=== PATIENT | male | born 1950 | race Hispanic/Latino ===

== ENCOUNTER 2017-10-24 08:08 | Day surgery (SDC) | payer OTHER, MEDICARE ==
[2017-10-22 08:49] VITALS: BP 106/76
[2017-10-22 08:58] LABS: BASOPHILS % (AUTO) 0.7 % (0.0-5.0); HEMATOCRIT 44.9 % (42-54); LYMPHOCYTES % (AUTO) 25.8 % (21.0-51.0); MEAN CORPUSCULAR HEMOGLOBIN 31.4 pg (27.0-33.0); MEAN CORPUSCULAR HGB CONC 34.1 g/dL (32.0-36.0); MEAN CORPUSCULAR VOLUME 92.1 fL (79-99); MONOCYTES % (AUTO) 7.1 % (3.0-13.0); NEUTROPHILS % (AUTO) 62.4 % (40.0-77.0); PLATELET COUNT (AUTO) 308 K/uL (130-400); RED BLOOD CELL COUNT(AUTO) 4.88 MIL/uL (4.50-6.20); RED CELL DISTRIBUTION WIDTH 13.5 % (11.0-15.5)
[2017-10-22 08:59] LABS: APPEARANCE,URINE Clear (CLEAR); BILIRUBIN,URINE Negative (NEGATIVE); COLOR,URINE Yellow (YELLOW); GLUCOSE, URINE (UA) Negative (NEGATIVE); KETONES,URINE Negative (NEGATIVE); LEUKOCYTE ESTERASE ,URINE Negative (NEGATIVE); NITRATE,URINE Negative (NEGATIVE); OCCULT BLOOD,URINE Negative (NEGATIVE); PROTEIN,URINE Negative (NEGATIVE); UROBILINOGEN,URINE 0.2 mg/dL (0.2-1.0)
[2017-10-22 09:10] LABS: CREATININE 0.9 mg/dL (0.5-1.5); POTASSIUM 4.1 mmol/L (3.5-5.1)
[2017-10-22 09:13] LABS: PROTHROMBIN TIME 10.5 SEC (9.6-11.6)
[~2017-10-24] VITALS: Ht 180.3 cm; Wt 120.7 kg
[2017-10-24] VITALS (9 sets, daily range): BP systolic 92–131; BP diastolic 65–78
[~2017-10-24 08:08] MED LIST: ASPI-555 PO; ATOR20TA65 PO; CARV3.12 PO; FLUO40CA49 PO; FURO-152 PO; GABA-318 PO; GLIP10TA9 PO; METF10004 PO; METO-391 PO; RIVA20TA PO; SITA100T12 PO; TAMS-1 PO
[2017-10-24] MEDS ORDERED: SODIUM CHLORIDE 0.9% 1000ML 1,000 ML IV ONE (08:10)
[2017-10-24] MEDS ORDERED: LIDOCAINE HCL 2% 20ML ONE (10:19)
[2017-10-24] MEDS ORDERED: IOPAMIDOL-370 100 ML VIAL IV ONE (10:19)
[2017-10-24] MEDS ORDERED: ISOVUE-370 50ML VIAL IV ONE (10:19)
[2017-10-24] MEDS ORDERED: NITROGLYCERIN 5 MG/ML 10 ML VIAL IV ONE (10:19)
[2017-10-24] MEDS ORDERED: DEXTROSE 50%-WATER 50 ML DISP.SYRIN IV PRN (10:45)
[2017-10-24] MEDS ORDERED: METOPROLOL TARTRATE 1 MG/ML 5ML VIAL IV PRN (10:45)
[2017-10-24] MEDS ORDERED: HYDRALAZINE HCL 20 MG/ML VIAL IV PRN (10:45)
[2017-10-24] MEDS ORDERED: GLUCAGON 1MG KIT 1 MG ML IM PRN (10:45)
[2017-10-24] MEDS ORDERED: INSULIN HUMULIN R 100 UNIT/ML 3ML SQ SCH (11:30)
[2017-10-24] MEDS ORDERED: ALBUTEROL SULFATE 0.083% 2.5 MG/3 ML INH IH ONE ×2 (14:20→17:00)
== END 2017-10-24 16:09 | disposition home or self-care (01) ==
LOC: DAH 08:08 → SUH 08:08
PROVIDERS: ATTEND Internal Medicine Cardiovascular Disease
DX: I25.10 Atherosclerotic heart disease of native coronary artery without angina pectoris (principal); R94.39 Abnormal result of other cardiovascular function study; E11.9 Type 2 diabetes mellitus without complications; E78.5 Hyperlipidemia, unspecified; I11.0 Hypertensive heart disease with heart failure; I50.9 Heart failure, unspecified; E78.00 Pure hypercholesterolemia, unspecified; Z79.84 Long term (current) use of oral hypoglycemic drugs; Z79.899 Other long term (current) drug therapy; I25.5 Ischemic cardiomyopathy; Z79.82 Long term (current) use of aspirin
CPT/HCPCS: 36415; 71045; 80048; 81003; 82948 ×2; 85025; 85610; 85730; 93005; 93458; 94640; A4606; C1894 ×2; J1644; J3490 ×2; J7030; Q9967 ×2

== ENCOUNTER 2020-11-23 17:57 | Inpatient (IN) | payer OTHER, MEDICARE ==
[~2020-11-23] VITALS: Ht 180.3 cm; Wt 113.1 kg
[~2020-11-23 17:57] MED LIST changes: -ASPI-555 PO; +ASPI-556 PO; -CARV3.12 PO; -GABA-318 PO; +GABA600T10 PO; +METF-446 PO; -METF10004 PO
[2020-11-23 19:26] LABS: INR 1.02 (0.85-1.15); PROTHROMBIN TIME 11.1 SEC (9.6-11.6)
[2020-11-23 19:28] LABS: PARTIAL THROMBOPLASTIN TIME 26.5 SEC (26.3-35.5)
[2020-11-23 19:29] LABS: BASOPHILS % (AUTO) 0.4 % (0.0-5.0); EOSINOPHILS % (AUTO) 0.9 % (0.0-8.0); HEMATOCRIT 40.7 % (42-54); LYMPHOCYTES % (AUTO) 21.8 % (21.0-51.0); MEAN CORPUSCULAR HEMOGLOBIN 30.3 pg (27.0-33.0); MEAN CORPUSCULAR HGB CONC 33.4 g/dL (32.0-36.0); MEAN CORPUSCULAR VOLUME 90.6 fL (79-99); MONOCYTES % (AUTO) 6.8 % (3.0-13.0); NEUTROPHILS % (AUTO) 69.7 % (40.0-77.0); PLATELET COUNT (AUTO) 268 K/uL (130-400); RED BLOOD CELL COUNT(AUTO) 4.49 MIL/uL (4.50-6.20); RED CELL DISTRIBUTION WIDTH 13.5 % (11.0-15.5); WHITE BLOOD COUNT (AUTO) 12.9 K/uL (4.8-10.8)
[2020-11-23 19:50] LABS: ALBUMIN 3.5 g/dL (3.5-5.0); BILIRUBIN,TOTAL 0.3 mg/dL (0.2-1.0); CRP QUANTITATIVE 3.1 mg/L (0.00-9.0)
[2020-11-23 19:51] LABS: B-TYPE NATRIURETIC PEPTIDE 161 pg/mL (0-100)
[2020-11-23 22:36] LABS: APPEARANCE,URINE Clear (CLEAR); BILIRUBIN,URINE Negative (NEGATIVE); COLOR,URINE Yellow (YELLOW); GLUCOSE, URINE (UA) Negative (NEGATIVE); KETONES,URINE Negative (NEGATIVE); LEUKOCYTE ESTERASE ,URINE Negative (NEGATIVE); NITRATE,URINE Negative (NEGATIVE); OCCULT BLOOD,URINE Negative (NEGATIVE); PH,URINE 5.5 (5.0-8.0); PROTEIN,URINE Negative (NEGATIVE)
[2020-11-23] MEDS ORDERED: LACTULOSE 20 GM/30 ML UDCUP PO PRN (22:45)
[2020-11-23] MEDS ORDERED: GUAIFENESIN-DM 200/20 MG 10 ML PO PRN (22:45)
[2020-11-23] MEDS: CEFTRIAXONE SODIUM 1 GM IV SCH (22:45)
[2020-11-23] MEDS ORDERED: ACETAMINOPHEN 325 MG TAB PO PRN (22:45)
[2020-11-23] MEDS ORDERED: NITROGLYCERIN 0.4 MG SL TAB SL PRN (22:45)
[2020-11-23] MEDS ORDERED: DIPHENHYDRAMINE HCL 25 MG CAPSULE PO PRN (22:45)
[2020-11-23] MEDS: LACTATED RINGERS 1000ML 1,000 ML IV SCH (22:45)
[2020-11-23] MEDS ORDERED: MAG HYDROX/AL HYDROX/SIMETH ES 30 ML SUSP UDCUP PO PRN (22:45)
[2020-11-23] MEDS ORDERED: ONDANSETRON HCL 4 MG/2 ML VIAL IV PRN (22:45)
[2020-11-23] MEDS ORDERED: DiphenhydrAMINE HCL 50 MG/ML VIAL IV PRN (22:45)
[2020-11-23] MEDS ORDERED: LACTATED RINGERS 1000ML 1,000 ML IV ONE (23:51)
[2020-11-23] MEDS ORDERED: CARVEDILOL 3.125 MG TABLET PO ONE (23:51)
[2020-11-23] MEDS ORDERED: CEFTRIAXONE SODIUM 1 GM ONE (23:51)
[2020-11-23] MEDS ORDERED: FAMOTIDINE/PF 20 MG/2 ML VIAL IV ONE (23:52)
[2020-11-24 01:25] VITALS: BP 123/90
[2020-11-24] MEDS ORDERED: POTA10TA11 PO (02:51)
[2020-11-24] MEDS ORDERED: PANT40TA54 PO (02:51)
[2020-11-24] MEDS ORDERED: CARV3.12 PO (02:54)
[2020-11-24] MEDS ORDERED: BUPR-49 PO (02:54)
[2020-11-24] MEDS ORDERED: DONE5TAB33 PO (02:57)
[2020-11-24] MEDS ORDERED: VARE1TAB22 PO (02:59)
[2020-11-24] MEDS ORDERED: ESCI20TA38 PO (02:59)
[2020-11-24 04:32] VITALS: BP 120/80
[2020-11-24 08:06] VITALS: BP 112/59
[2020-11-24] MEDS: LACTATED RINGERS 1000ML 1,000 ML IV SCH (08:45)
[2020-11-24] MEDS: CARVEDILOL 3.125 MG TABLET PO SCH ×2 (09:29→21:00)
[2020-11-24] MEDS: FAMOTIDINE/PF 20 MG/2 ML VIAL IV SCH ×2 (09:30→21:00)
[2020-11-24 11:41] VITALS: BP 111/79
[2020-11-24 16:00] VITALS: BP 126/78
[2020-11-24] MEDS: METFORMIN HCL 500 MG TABLET PO SCH (17:40)
[2020-11-24] MEDS: INSULIN HUMULIN R 100 UNIT/ML 3ML SQ SCH ×2 (17:42→21:00)
[2020-11-24] MEDS: NICOTINE 21 MG/ 24 HR PATCH TD SCH (18:39)
[2020-11-24] MEDS ORDERED: LORAZEPAM 2 MG/ML 1 ML VIAL IVP PRN (19:45)
[2020-11-24] MEDS ORDERED: LORAZEPAM 2 MG/ML 1 ML VIAL ONE (19:47)
[2020-11-24] MEDS: DONEPEZIL HCL 5 MG TAB PO SCH (21:00)
[2020-11-24] MEDS: GABAPENTIN 300 MG CAPSULE PO SCH (21:00)
[2020-11-24] MEDS: VARENICLINE TARTRATE PO SCH (21:00)
[2020-11-24] MEDS ORDERED: HALOPERIDOL LACTATE 5 MG/ML VIAL IM SCH (23:00)
[2020-11-24] MEDS ORDERED: HALOPERIDOL LACTATE 5 MG/ML VIAL ONE (23:14)
[2020-11-24] MEDS: CEFTRIAXONE SODIUM 1 GM IV SCH (23:17)
[2020-11-25] VITALS: BP 132/87
[2020-11-25 04:35] VITALS: BP 133/86
[2020-11-25 05:01] LABS: BASOPHILS % (AUTO) 0.3 % (0.0-5.0); EOSINOPHILS % (AUTO) 0.1 % (0.0-8.0); HEMATOCRIT 39.9 % (42-54); LYMPHOCYTES % (AUTO) 14.4 % (21.0-51.0); MEAN CORPUSCULAR HEMOGLOBIN 30.2 pg (27.0-33.0); MEAN CORPUSCULAR HGB CONC 33.6 g/dL (32.0-36.0); MEAN CORPUSCULAR VOLUME 89.9 fL (79-99); MONOCYTES % (AUTO) 7.2 % (3.0-13.0); NEUTROPHILS % (AUTO) 77.6 % (40.0-77.0); PLATELET COUNT (AUTO) 294 K/uL (130-400); RED BLOOD CELL COUNT(AUTO) 4.44 MIL/uL (4.50-6.20); RED CELL DISTRIBUTION WIDTH 13.3 % (11.0-15.5); WHITE BLOOD COUNT (AUTO) 17.2 K/uL (4.8-10.8)
[2020-11-25 05:08] LABS: POTASSIUM 3.4 mmol/L (3.5-5.1)
[2020-11-25] MEDS: INSULIN HUMULIN R 100 UNIT/ML 3ML SQ SCH ×4 (07:30→21:00)
[2020-11-25] MEDS: FAMOTIDINE/PF 20 MG/2 ML VIAL IV SCH ×2 (09:00→21:55)
[2020-11-25] MEDS: NICOTINE 21 MG/ 24 HR PATCH TD SCH (09:00)
[2020-11-25] MEDS: RIVAROXABAN 20 MG TABLET PO SCH (09:00)
[2020-11-25] MEDS: VARENICLINE TARTRATE PO SCH ×2 (09:00→21:00)
[2020-11-25] MEDS: LINAGLIPTIN 5 MG TABLET PO SCH (09:01)
[2020-11-25] MEDS: METFORMIN HCL 500 MG TABLET PO SCH ×2 (09:01→14:59)
[2020-11-25] MEDS: ATORVASTATIN CALCIUM 20 MG TABLET PO SCH (09:02)
[2020-11-25] MEDS: FUROSEMIDE 20 MG TABLET PO SCH (09:02)
[2020-11-25] MEDS: CARVEDILOL 3.125 MG TABLET PO SCH ×2 (09:02→21:56)
[2020-11-25] MEDS: CITALOPRAM 20 MG TABLET PO SCH (09:02)
[2020-11-25] MEDS: ACETAMINOPHEN 325 MG TAB PO PRN (09:02)
[2020-11-25] MEDS: BUPROPION HCL 150 MG TABLET.SA PO SCH (09:03)
[2020-11-25] MEDS ORDERED: CHLORDIAZEPOXIDE HCL 25 MG CAP PO PRN (10:30)
[2020-11-25] MEDS ORDERED: LORAZEPAM 2 MG/ML 1 ML VIAL IVP PRN (10:30)
[2020-11-25] MEDS ORDERED: PHARMACY COMMUNICATION MISC PRN (10:30)
[2020-11-25 10:41] LABS: MAGNESIUM 1.8 mg/dL (1.80-2.40); PHOSPHORUS 3.2 mg/dL (2.5-4.9)
[2020-11-25 12:02] VITALS: BP 114/89
[2020-11-25] MEDS ORDERED: LIDOCAINE HCL-MPF 1% 2ML VIAL IV PRN (14:15)
[2020-11-25] MEDS ORDERED: POTASSIUM CHLORIDE 20 MEQ ERTAB PO PRN (14:15)
[2020-11-25] MEDS ORDERED: POTASSIUM CHLORIDE 20MEQ/100ML 100 ML IV PRN (14:15)
[2020-11-25] MEDS: ALBUTEROL INHALER 90MCG/INH IH PRN (14:59)
[2020-11-25] MEDS: POTASSIUM CHLORIDE 10% ELIXIR 20 MEQ/15 ML UDCUP PO PRN ×2 (15:01→21:59)
[2020-11-25 16:19] VITALS: BP 145/82
[2020-11-25] MEDS ORDERED: IPRATROPIUM/ALBUTEROL SULFATE 3 ML SOLUTION IH SCH (18:00)
[2020-11-25] MEDS: GABAPENTIN 300 MG CAPSULE PO SCH (21:56)
[2020-11-25] MEDS: RISPERIDONE 0.5 MG TABLET PO SCH (21:56)
[2020-11-25] MEDS: DONEPEZIL HCL 5 MG TAB PO SCH (21:57)
[2020-11-25] MEDS: CEFTRIAXONE SODIUM 1 GM IV SCH (21:57)
[2020-11-26] MEDS ORDERED: MAGNESIUM 2GM PREMIX 50ML 50 ML IV PRN (01:15)
[2020-11-26 04:00] VITALS: BP 132/75
[2020-11-26] MEDS: ALBUTEROL INHALER 90MCG/INH IH PRN (04:21)
[2020-11-26 05:12] LABS: BASOPHILS % (AUTO) 0.5 % (0.0-5.0); EOSINOPHILS % (AUTO) 0.8 % (0.0-8.0); HEMATOCRIT 40.8 % (42-54); MEAN CORPUSCULAR HEMOGLOBIN 29.9 pg (27.0-33.0); MEAN CORPUSCULAR HGB CONC 32.8 g/dL (32.0-36.0); MEAN CORPUSCULAR VOLUME 91.1 fL (79-99); NEUTROPHILS % (AUTO) 72.5 % (40.0-77.0); PLATELET COUNT (AUTO) 302 K/uL (130-400); RED BLOOD CELL COUNT(AUTO) 4.48 MIL/uL (4.50-6.20); RED CELL DISTRIBUTION WIDTH 13.4 % (11.0-15.5); WHITE BLOOD COUNT (AUTO) 13.6 K/uL (4.8-10.8)
[2020-11-26] MEDS: INSULIN HUMULIN R 100 UNIT/ML 3ML SQ SCH ×4 (05:22→21:00)
[2020-11-26 05:33] LABS: CREATININE 0.9 mg/dL (0.5-1.5); MAGNESIUM 1.9 mg/dL (1.80-2.40); POTASSIUM 3.6 mmol/L (3.5-5.1)
[2020-11-26 08:00] VITALS: BP 119/93
[2020-11-26] MEDS: METFORMIN HCL 500 MG TABLET PO SCH ×2 (08:00→17:00)
[2020-11-26] MEDS: LINAGLIPTIN 5 MG TABLET PO SCH (09:00)
[2020-11-26] MEDS: VARENICLINE TARTRATE PO SCH ×2 (09:00→21:00)
[2020-11-26] MEDS: THIAMINE HCL 100 MG/ML 2ML VIAL IM SCH (10:53)
[2020-11-26] MEDS: FAMOTIDINE/PF 20 MG/2 ML VIAL IV SCH ×2 (10:53→22:01)
[2020-11-26] MEDS: RIVAROXABAN 20 MG TABLET PO SCH (10:53)
[2020-11-26] MEDS: CARVEDILOL 3.125 MG TABLET PO SCH ×2 (10:54→21:58)
[2020-11-26] MEDS: FUROSEMIDE 20 MG TABLET PO SCH (10:54)
[2020-11-26] MEDS: CITALOPRAM 20 MG TABLET PO SCH (10:54)
[2020-11-26] MEDS: MULTIVITAMIN TABLET PO SCH (10:54)
[2020-11-26] MEDS: FOLIC ACID 1 MG TABLET PO SCH (10:54)
[2020-11-26] MEDS: ATORVASTATIN CALCIUM 20 MG TABLET PO SCH (10:54)
[2020-11-26] MEDS: BUPROPION HCL 150 MG TABLET.SA PO SCH (10:54)
[2020-11-26] MEDS: NICOTINE 21 MG/ 24 HR PATCH TD SCH (10:55)
[2020-11-26] MEDS: RISPERIDONE 0.5 MG TABLET PO SCH ×3 (10:55→22:05)
[2020-11-26 12:00] VITALS: BP 128/73
[2020-11-26 16:00] VITALS: BP 124/97
[2020-11-26 21:22] VITALS: BP 122/64
[2020-11-26] MEDS: DONEPEZIL HCL 5 MG TAB PO SCH (21:59)
[2020-11-26] MEDS: GABAPENTIN 300 MG CAPSULE PO SCH (21:59)
[2020-11-26] MEDS: CEFTRIAXONE SODIUM 1 GM IV SCH (22:00)
[2020-11-27] VITALS (7 sets, daily range): BP systolic 101–170; BP diastolic 64–92
[2020-11-27 05:01] LABS: BASOPHILS % (AUTO) 0.5 % (0.0-5.0); HEMATOCRIT 44.3 % (42-54); LYMPHOCYTES % (AUTO) 16.6 % (21.0-51.0); MEAN CORPUSCULAR HEMOGLOBIN 29.7 pg (27.0-33.0); MEAN CORPUSCULAR HGB CONC 32.5 g/dL (32.0-36.0); MEAN CORPUSCULAR VOLUME 91.3 fL (79-99); MONOCYTES % (AUTO) 7.9 % (3.0-13.0); NEUTROPHILS % (AUTO) 73.7 % (40.0-77.0); PLATELET COUNT (AUTO) 303 K/uL (130-400); RED BLOOD CELL COUNT(AUTO) 4.85 MIL/uL (4.50-6.20); RED CELL DISTRIBUTION WIDTH 13.4 % (11.0-15.5); WHITE BLOOD COUNT (AUTO) 11.7 K/uL (4.8-10.8)
[2020-11-27 05:16] LABS: POTASSIUM 3.9 mmol/L (3.5-5.1)
[2020-11-27] MEDS: INSULIN HUMULIN R 100 UNIT/ML 3ML SQ SCH ×4 (06:27→20:16)
[2020-11-27] MEDS: METFORMIN HCL 500 MG TABLET PO SCH ×2 (07:39→16:29)
[2020-11-27] MEDS: LINAGLIPTIN 5 MG TABLET PO SCH (07:40)
[2020-11-27] MEDS: VARENICLINE TARTRATE PO SCH ×2 (07:40→20:16)
[2020-11-27] MEDS: THIAMINE HCL 100 MG/ML 2ML VIAL IM SCH (08:56)
[2020-11-27] MEDS: FOLIC ACID 1 MG TABLET PO SCH (08:56)
[2020-11-27] MEDS: BUPROPION HCL 150 MG TABLET.SA PO SCH (08:56)
[2020-11-27] MEDS: MULTIVITAMIN TABLET PO SCH (08:56)
[2020-11-27] MEDS: RIVAROXABAN 20 MG TABLET PO SCH (08:57)
[2020-11-27] MEDS: FUROSEMIDE 20 MG TABLET PO SCH (08:57)
[2020-11-27] MEDS: CARVEDILOL 3.125 MG TABLET PO SCH ×2 (08:57→20:15)
[2020-11-27] MEDS: NICOTINE 21 MG/ 24 HR PATCH TD SCH (08:57)
[2020-11-27] MEDS: FAMOTIDINE/PF 20 MG/2 ML VIAL IV SCH ×2 (08:58→20:15)
[2020-11-27] MEDS: CITALOPRAM 20 MG TABLET PO SCH (08:58)
[2020-11-27] MEDS: ATORVASTATIN CALCIUM 20 MG TABLET PO SCH (08:58)
[2020-11-27] MEDS: ACETAMINOPHEN 325 MG TAB PO PRN (09:04)
[2020-11-27] MEDS: RISPERIDONE 0.5 MG TABLET PO SCH (20:15)
[2020-11-27] MEDS: DONEPEZIL HCL 5 MG TAB PO SCH (20:15)
[2020-11-27] MEDS: GABAPENTIN 300 MG CAPSULE PO SCH (20:16)
[2020-11-27] MEDS: CEFTRIAXONE SODIUM 1 GM IV SCH (20:23)
[2020-11-28] MEDS: ACETAMINOPHEN 325 MG TAB PO PRN (02:39)
[2020-11-28 04:15] VITALS: BP 104/78
[2020-11-28 05:43] LABS: BASOPHILS % (AUTO) 0.4 % (0.0-5.0); EOSINOPHILS % (AUTO) 2.1 % (0.0-8.0); LYMPHOCYTES % (AUTO) 20.4 % (21.0-51.0); MEAN CORPUSCULAR HEMOGLOBIN 30.5 pg (27.0-33.0); MEAN CORPUSCULAR HGB CONC 33.6 g/dL (32.0-36.0); MEAN CORPUSCULAR VOLUME 90.9 fL (79-99); MONOCYTES % (AUTO) 9.6 % (3.0-13.0); NEUTROPHILS % (AUTO) 67.1 % (40.0-77.0); PLATELET COUNT (AUTO) 323 K/uL (130-400); RED BLOOD CELL COUNT(AUTO) 4.62 MIL/uL (4.50-6.20); RED CELL DISTRIBUTION WIDTH 13.3 % (11.0-15.5); WHITE BLOOD COUNT (AUTO) 11.2 K/uL (4.8-10.8)
[2020-11-28] MEDS: INSULIN HUMULIN R 100 UNIT/ML 3ML SQ SCH ×4 (05:55→20:58)
[2020-11-28 05:59] LABS: ALBUMIN 3.3 g/dL (3.5-5.0); BILIRUBIN,TOTAL 0.5 mg/dL (0.2-1.0); POTASSIUM 3.6 mmol/L (3.5-5.1)
[2020-11-28] MEDS: POTASSIUM CHLORIDE 10% ELIXIR 20 MEQ/15 ML UDCUP PO PRN ×2 (06:27→21:41)
[2020-11-28 08:00] VITALS: BP 113/54
[2020-11-28] MEDS: ATORVASTATIN CALCIUM 20 MG TABLET PO SCH (08:31)
[2020-11-28] MEDS: BUPROPION HCL 150 MG TABLET.SA PO SCH (08:31)
[2020-11-28] MEDS: METFORMIN HCL 500 MG TABLET PO SCH ×2 (08:31→17:33)
[2020-11-28] MEDS: FOLIC ACID 1 MG TABLET PO SCH (08:31)
[2020-11-28] MEDS: RIVAROXABAN 20 MG TABLET PO SCH (08:31)
[2020-11-28] MEDS: FUROSEMIDE 20 MG TABLET PO SCH (08:31)
[2020-11-28] MEDS: MULTIVITAMIN TABLET PO SCH (08:32)
[2020-11-28] MEDS: LINAGLIPTIN 5 MG TABLET PO SCH (08:32)
[2020-11-28] MEDS: THIAMINE HCL 100 MG/ML 2ML VIAL IM SCH (08:32)
[2020-11-28] MEDS: FAMOTIDINE/PF 20 MG/2 ML VIAL IV SCH ×2 (08:33→20:54)
[2020-11-28] MEDS: CITALOPRAM 20 MG TABLET PO SCH (08:33)
[2020-11-28] MEDS: CARVEDILOL 3.125 MG TABLET PO SCH ×2 (08:33→20:57)
[2020-11-28] MEDS: VARENICLINE TARTRATE PO SCH ×2 (09:00→20:57)
[2020-11-28] MEDS: NICOTINE 21 MG/ 24 HR PATCH TD SCH (09:00)
[2020-11-28 11:00] VITALS: BP 113/53
[2020-11-28 16:30] VITALS: BP 128/85
[2020-11-28 20:00] VITALS: BP 124/91
[2020-11-28] MEDS: DONEPEZIL HCL 5 MG TAB PO SCH (20:53)
[2020-11-28] MEDS: RISPERIDONE 0.5 MG TABLET PO SCH (20:54)
[2020-11-28] MEDS: CEFTRIAXONE SODIUM 1 GM IV SCH (20:54)
[2020-11-28] MEDS: GABAPENTIN 300 MG CAPSULE PO SCH (20:54)
[2020-11-29] VITALS (7 sets, daily range): BP systolic 109–140; BP diastolic 55–96
[2020-11-29 04:49] LABS: BASOPHILS % (AUTO) 0.5 % (0.0-5.0); EOSINOPHILS % (AUTO) 1.8 % (0.0-8.0); HEMATOCRIT 44.3 % (42-54); MEAN CORPUSCULAR HEMOGLOBIN 29.4 pg (27.0-33.0); MEAN CORPUSCULAR HGB CONC 32.1 g/dL (32.0-36.0); MEAN CORPUSCULAR VOLUME 91.7 fL (79-99); MONOCYTES % (AUTO) 9.2 % (3.0-13.0); NEUTROPHILS % (AUTO) 65.1 % (40.0-77.0); PLATELET COUNT (AUTO) 330 K/uL (130-400); RED BLOOD CELL COUNT(AUTO) 4.83 MIL/uL (4.50-6.20); RED CELL DISTRIBUTION WIDTH 13.4 % (11.0-15.5); WHITE BLOOD COUNT (AUTO) 11.4 K/uL (4.8-10.8)
[2020-11-29 05:03] LABS: ALBUMIN 3.3 g/dL (3.5-5.0)
[2020-11-29 05:20] LABS: BILIRUBIN,TOTAL 0.5 mg/dL (0.2-1.0)
[2020-11-29] MEDS: INSULIN HUMULIN R 100 UNIT/ML 3ML SQ SCH ×4 (05:35→21:00)
[2020-11-29] MEDS: FAMOTIDINE/PF 20 MG/2 ML VIAL IV SCH ×2 (08:03→19:58)
[2020-11-29] MEDS: METFORMIN HCL 500 MG TABLET PO SCH ×2 (08:03→16:20)
[2020-11-29] MEDS: RIVAROXABAN 20 MG TABLET PO SCH (08:03)
[2020-11-29] MEDS: LINAGLIPTIN 5 MG TABLET PO SCH (08:03)
[2020-11-29] MEDS: CITALOPRAM 20 MG TABLET PO SCH (08:03)
[2020-11-29] MEDS: BUPROPION HCL 150 MG TABLET.SA PO SCH (08:04)
[2020-11-29] MEDS: FUROSEMIDE 20 MG TABLET PO SCH (08:04)
[2020-11-29] MEDS: ATORVASTATIN CALCIUM 20 MG TABLET PO SCH (08:04)
[2020-11-29] MEDS: CARVEDILOL 3.125 MG TABLET PO SCH ×2 (08:04→19:58)
[2020-11-29] MEDS: NICOTINE 21 MG/ 24 HR PATCH TD SCH (08:10)
[2020-11-29] MEDS: MULTIVITAMIN TABLET PO SCH (08:10)
[2020-11-29] MEDS: VARENICLINE TARTRATE PO SCH ×2 (09:00→21:00)
[2020-11-29] MEDS: ACETAMINOPHEN 325 MG TAB PO PRN (12:48)
[2020-11-29] MEDS: RISPERIDONE 0.5 MG TABLET PO SCH (19:57)
[2020-11-29] MEDS: GABAPENTIN 300 MG CAPSULE PO SCH (19:58)
[2020-11-29] MEDS: DONEPEZIL HCL 5 MG TAB PO SCH (19:58)
[2020-11-29] MEDS: CEFTRIAXONE SODIUM 1 GM IV SCH (22:56)
[2020-11-30 03:51] VITALS: BP 114/64
[2020-11-30 05:19] LABS: BASOPHILS % (AUTO) 0.4 % (0.0-5.0); EOSINOPHILS % (AUTO) 2.1 % (0.0-8.0); HEMATOCRIT 42.2 % (42-54); LYMPHOCYTES % (AUTO) 23.2 % (21.0-51.0); MEAN CORPUSCULAR HEMOGLOBIN 30.3 pg (27.0-33.0); MEAN CORPUSCULAR HGB CONC 33.2 g/dL (32.0-36.0); MEAN CORPUSCULAR VOLUME 91.3 fL (79-99); MONOCYTES % (AUTO) 8.6 % (3.0-13.0); NEUTROPHILS % (AUTO) 65.4 % (40.0-77.0); PLATELET COUNT (AUTO) 317 K/uL (130-400); RED BLOOD CELL COUNT(AUTO) 4.62 MIL/uL (4.50-6.20); RED CELL DISTRIBUTION WIDTH 13.3 % (11.0-15.5); WHITE BLOOD COUNT (AUTO) 11.4 K/uL (4.8-10.8)
[2020-11-30] MEDS: INSULIN HUMULIN R 100 UNIT/ML 3ML SQ SCH ×4 (05:40→20:45)
[2020-11-30 06:13] LABS: ALBUMIN 3.3 g/dL (3.5-5.0); BILIRUBIN,TOTAL 0.5 mg/dL (0.2-1.0); CREATININE 0.8 mg/dL (0.5-1.5); MAGNESIUM 1.9 mg/dL (1.80-2.40); POTASSIUM 3.7 mmol/L (3.5-5.1); TOTAL PROTEIN, SERUM 6.9 g/dL (6.0-8.3)
[2020-11-30] MEDS: FAMOTIDINE/PF 20 MG/2 ML VIAL IV SCH ×2 (07:28→20:46)
[2020-11-30] MEDS: CITALOPRAM 20 MG TABLET PO SCH (07:29)
[2020-11-30] MEDS: ATORVASTATIN CALCIUM 20 MG TABLET PO SCH (07:29)
[2020-11-30] MEDS: LINAGLIPTIN 5 MG TABLET PO SCH (07:29)
[2020-11-30] MEDS: FUROSEMIDE 20 MG TABLET PO SCH (07:29)
[2020-11-30] MEDS: METFORMIN HCL 500 MG TABLET PO SCH ×2 (07:29→17:01)
[2020-11-30] MEDS: CARVEDILOL 3.125 MG TABLET PO SCH ×2 (07:29→20:44)
[2020-11-30] MEDS: MULTIVITAMIN TABLET PO SCH (07:29)
[2020-11-30] MEDS: NICOTINE 21 MG/ 24 HR PATCH TD SCH (07:30)
[2020-11-30] MEDS: BUPROPION HCL 150 MG TABLET.SA PO SCH (07:30)
[2020-11-30] MEDS: RIVAROXABAN 20 MG TABLET PO SCH (07:30)
[2020-11-30] MEDS: VARENICLINE TARTRATE PO SCH ×2 (07:31→20:44)
[2020-11-30 08:00] VITALS: BP 116/73
[2020-11-30] MEDS ORDERED: CYANOCOBALAMIN (VITAMIN B-12) 100 MCG TABLET PO SCH (09:00)
[2020-11-30 12:00] VITALS: BP 85/64
[2020-11-30 12:30] VITALS: BP 143/80
[2020-11-30 16:00] VITALS: BP 139/85
[2020-11-30] MEDS ORDERED: LORAZEPAM 0.5 MG TABLET ONE (17:00)
[2020-11-30] MEDS ORDERED: LORAZEPAM 0.5 MG TABLET PO SCH (17:00)
[2020-11-30 20:44] VITALS: BP 172/79
[2020-11-30] MEDS: GABAPENTIN 300 MG CAPSULE PO SCH (20:44)
[2020-11-30] MEDS: RISPERIDONE 0.5 MG TABLET PO SCH (20:44)
[2020-11-30] MEDS: DONEPEZIL HCL 5 MG TAB PO SCH (20:44)
[2020-11-30] MEDS: CEFTRIAXONE SODIUM 1 GM IV SCH (20:46)
== END 2020-11-30 21:20 | DRG 71 ==
LOC: EDH 17:57 → OBSVTOIN 22:38 → EDHIP 22:38 → 3AH 11-24 01:15 → 3BH 11-29 14:08
PROVIDERS: ADMIT Family Medicine; ATTEND Family Medicine
DX: G93.41 Metabolic encephalopathy (principal); F10.231 Alcohol dependence with withdrawal delirium; R42 Dizziness and giddiness; I11.0 Hypertensive heart disease with heart failure; I50.9 Heart failure, unspecified; E11.9 Type 2 diabetes mellitus without complications; E66.9 Obesity, unspecified; E78.00 Pure hypercholesterolemia, unspecified; F17.200 Nicotine dependence, unspecified, uncomplicated; I48.91 Unspecified atrial fibrillation; Z20.822 Contact with and (suspected) exposure to COVID-19; Z79.01 Long term (current) use of anticoagulants; Z79.84 Long term (current) use of oral hypoglycemic drugs; Z68.34 Body mass index [BMI] 34.0-34.9, adult; Z83.3 Family history of diabetes mellitus; Z82.5 Family history of asthma and other chronic lower respiratory diseases; Z82.49 Family history of ischemic heart disease and other diseases of the circulatory system; Z82.0 Family history of epilepsy and other diseases of the nervous system
CPT/HCPCS: 36415; 70450; 70551; 71045; 72125; 80048; 80053; 81003; 82550; 82607; 82948; 83605; 83690; 83735; 83880; 84100; 84145; 84484; 85025; 85610; 85730; 86140; 87040; 87426; 87804; 92610; 93005; 97039; 99291; G0378; J0696; J1200; J1630; J1815; J2060; J3411; J3490; J7120; U0003